=== PATIENT | male | born 1930 | race Caucasian/White ===

== ENCOUNTER 2019-03-26 18:46 | Inpatient (IN) | payer OTHER, BC ==
[~2019-03-26] VITALS: Ht 170.2 cm; Wt 34.0 kg
[2019-03-26 18:46] VITALS: BP 137/82
--- NOTE | 2019-03-26 19:11 | NUR ---
DR. WINTER EVALUATING AT BEDSIDE.
--- NOTE | 2019-03-26 19:15 | NUR ---
88 YO M BIBA FROM HOME C/O N/V/D X 4 DAYS WELL GENERALIZED WEAKNESS STARTING TODAY AFTER DINNER. PER , PT HAS BECOME INCREASINGLY CONFUSED OVER LAST 4 DAYS. PT ALSO C/O DRY, NAGGING COUGH STARTING TODAY. PT'S BASELINE IS AMBULATORY, A/O X 4. 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 PT IS FEBRILE AND TACHYCARDIC AT THIS TIME; SEPSIS PROTOCOL INITIATED. -- PT AWAKE, A/O TO NAME. REQUIRES HELP FROM WITH ANSWERING MOST QUESTIONS. CALM, COOPERATIVE. FOLLOWS COMMANDS WITHOUT DIFFICULTY; NEEDS REMINDING. -- SKIN PINK, DRY, HOT TO TOUCH. BREATHING EVEN, UNLABORED. -- PT DENIES PAIN, DISCOMFORT AT THIS TIME. PT REPORTS SOME CHEST DISCOMFORT WITH COUGH, DEEP BREATHING. PMH-- COPD, PARKINSON'S, IQUGMIUT, GLAUCOMA, C-DIFF X 4 YEARS AGO.
[2019-03-26] MEDS ORDERED: NACL 0.9% 1,000 ML IV ONE ×2 (19:16→21:40)
[2019-03-26] MEDS ORDERED: ACETAMINOPHEN EXTRA STRENGTH 500 MG TAB PO ONE (19:20)
[2019-03-26] MEDS ORDERED: NACL 0.9% 1,500 ML IV ONE (19:20)
--- NOTE | 2019-03-26 19:25 | NUR ---
EMT PERFORMING EKG AT BEDSIDE.
--- NOTE | 2019-03-26 19:30 | NUR ---
RN DRAWING LABS AT BEDSIDE.
--- NOTE | 2019-03-26 19:35 | NUR ---
XRAY AT BEDSIDE.
[2019-03-26] MEDS ORDERED: cefTRIAXone 1,000 MG VIAL ONE (19:48)
[2019-03-26 19:55] LABS: HEMATOCRIT 42.4 % (36-52); HEMOGLOBIN 14.2 g/dL (12.0-18.0); MEAN CORPUSCULAR HEMOGLOBIN 31 pg (27-31); MEAN CORPUSCULAR HGB CONC 34 g/dL (33-37); MEAN CORPUSCULAR VOLUME 90.9 fL (80-94); PLATELET COUNT (AUTO) 182 K/uL (140-450); RED BLOOD CELL COUNT(AUTO) 4.67 MIL/uL (4.20-6.10); RED CELL DISTRIBUTION WIDTH 14.4 % (11.6-13.7); WHITE BLOOD COUNT (AUTO) 8.4 K/uL (4.8-10.8)
--- NOTE | 2019-03-26 20:10 | NUR ---
PHLEB AT BEDSIDE DRAWING SECOND BLOOD CX.
[2019-03-26 20:11] LABS: PROTHROMBIN TIME 12.2 secs (10.8-13.4)
[2019-03-26 20:12] LABS: LYMPHOCYTES % (MANUAL) 4 % (20-46); MONOCYTES % (MANUAL) 1 % (5-12)
--- NOTE | 2019-03-26 20:22 | NUR ---
PT TAKEN TO CT VIA GURNEY ACCOMPANIED BY LABEL PASTER X 2.
--- NOTE | 2019-03-26 20:36 | NUR ---
PT RETURNED FROM CT VIA [facility].
[2019-03-26 20:38] LABS: CARBON DIOXIDE 23.4 mmol/L (21-32); CHLORIDE 102 mmol/L (98-107); CREATININE 1.3 mg/dL (0.7-1.3); GLUCOSE 234 mg/dL (74-106); POTASSIUM 3.4 mmol/L (3.5-5.1); SODIUM SERUM 139 mmol/L (136-145); UREA NITROGEN, BLOOD 22 mg/dL (7-18)
[2019-03-26 20:54] LABS: ALBUMIN 2.7 g/dL (3.4-5.0); ASPARTATE AMINOTRANSFERASE 42 U/L (15-37); LIPASE 20 U/L (73-393); TOTAL BILIRUBIN 0.7 mg/dL (0.0-1.0)
[2019-03-26 20:56] LABS: APPEARANCE,URINE CLOUDY (CLEAR); BILIRUBIN,URINE 1+ (NEGATIVE); BLOOD, URINE TRACE-I (NEGATIVE); COLOR,URINE ORANGE (YELLOW); LEUKOCYTE ESTERASE ,URINE NEGATIVE (NEGATIVE); NITRITE, URINE NEGATIVE (NEGATIVE); PH,URINE 5.5 (5.0-9.0); UGLUCOSE TRACE (NEGATIVE)
--- NOTE | 2019-03-26 21:21 | NUR ---
PT RESTING QUIETLY IN BED WITH VSS. NO COMPLAINTS AT THIS TIME. DAUGHTER SITTING AT BEDSIDE.
[2019-03-26 21:40] LABS: RBC,URINE 0-5 /HPF (0-5)
[2019-03-26 21:41] LABS: HYALINE CASTS, URINE 0-10 /LPF (None Seen); WBC,URINE 0-5 /HPF (0-5)
[2019-03-26] MEDS ORDERED: VITD1000 PO (21:53)
[2019-03-26] MEDS ORDERED: LATA7.5D OP (21:53)
[2019-03-26] MEDS ORDERED: ASPI-1718 PO (21:53)
[2019-03-26] MEDS ORDERED: COM200 PO (21:53)
[2019-03-26] MEDS ORDERED: [UNRECOGNIZED DRUG - CODE] PO (21:53)
[2019-03-26] MEDS ORDERED: CARB1TAB15 PO (21:53)
[2019-03-26] MEDS ORDERED: VITA1SGL PO (21:53)
[2019-03-26] MEDS ORDERED: ATOR10TA PO (21:53)
[2019-03-26] MEDS ORDERED: SILO8CAP PO (21:53)
[2019-03-26] MEDS ORDERED: metroNIDAZOLE 500 MG/NS PREMIX 100 ML IV ONE (22:05)
--- NOTE | 2019-03-26 22:16 | NUR ---
PT AWAKE, RESTING COMFORTABLY WITH AT BEDSIDE. FLUIDS RUNNING. PT IS AFEBRILE. VSS. NO COMPLAINTS AT THIS TIME.
[2019-03-26 23:00] VITALS: BP 110/60
--- NOTE | 2019-03-26 23:00 | NUR ---
RECIEVED PT. FROM ER /[facility] [place] .O2 SAT WNL , IV SITES INTACT AND PATENT.WITH C/O OF MILD ABDL. 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 WILL CONT. TO MONITOR.
--- NOTE | 2019-03-26 23:07 | NUR ---
Patient will be admitted to care of Dr. Metz. Admited to telemetry. Will go to room 122B. Belongings list completed. Report to HAYDER Calderón.
--- NOTE | 2019-03-27 | NUR ---
MADE ROUNDS , NO SIGNS OF ACUTE DISTRESS NOTED AT THIS TIME , CALL LIGHT WITHIN REACH - BED ALARM ON .
[2019-03-27] MEDS: NACL 0.9% 1,000 ML IV SCH ×2 (01:01→06:34)
[2019-03-27] MEDS ORDERED: HYDROcodone/APAP 5/325 MG 1 TAB TAB PO PRN (01:05)
[2019-03-27] MEDS ORDERED: DOCUSATE SODIUM 100 MG GELCAP PO PRN (01:05)
[2019-03-27] MEDS ORDERED: MORPHINE SULFATE 2 MG/ML SYR IVP PRN (01:05)
[2019-03-27] MEDS ORDERED: LORazepam 2 MG/ML VIAL IM/IVP PRN (01:05)
[2019-03-27] MEDS ORDERED: ZOLPIDEM 5 MG TAB PO PRN (01:05)
[2019-03-27] MEDS: ACETAMINOPHEN 325 MG TAB PO PRN (03:24)
--- NOTE | 2019-03-27 03:24 | NUR ---
RE CHECKED TEMP - 105.8F - TYLENOL P.O GIVEN ORDERED. WILL CONT. TO MONITOR .IVF INFUSING WELL .
[2019-03-27 04:00] VITALS: BP 105/60
[2019-03-27] MEDS ORDERED: DEXTROSE 50% 50 ML SYR IVP PRN (04:20)
--- NOTE | 2019-03-27 04:24 | NUR ---
RE CHECKED TEMP 100.2 - AWAKE AND ALERT. WILL CONT. TO MONITOR, CALL LIGHT WITHIN REACH.
[2019-03-27] MEDS: metroNIDAZOLE 500 MG/NS PREMIX 100 ML IV SCH ×3 (04:29→20:31)
[2019-03-27] MEDS ORDERED: WATER STERILE 10 ML MC ONE ×2 (05:56→06:00)
--- NOTE | 2019-03-27 06:00 | NUR ---
REFER TO JUNIOR . PT IS FEBRILE , HAD WATERY STOOLS 2X , MODERATE AMOUNT , CONSISTENT ST DEPRESSION ALTHOUGH SR LBP WNL . CR 92 - ON MODEL DRESSER. WILL CONT. TO MONITOR.JUNIOR SAID THEY WILL SEE THE PT.
[2019-03-27] MEDS: VANCOMYCIN 500 MG VIAL PO SCH ×4 (06:08→23:58)
[2019-03-27] MEDS: BLOOD GLUCOSE MONITORING 1 DEV DEV FS SCH ×4 (06:20→20:32)
--- NOTE | 2019-03-27 07:10 | NUR ---
RECEIVED BED SIDE REPORT FROM NIGHT NURSE, PATIENT IN STABLE CONDITION, NO DISTRESS NOTED.
--- NOTE | 2019-03-27 07:20 | NUR ---
ENDORSED TO AM SHIFT WITH STABLE CONDITION WITH LATEST TEMP 99.1 F.
[2019-03-27 07:30] LABS: HEMATOCRIT 39.7 % (36-52); HEMOGLOBIN 13.4 g/dL (12.0-18.0); MEAN CORPUSCULAR HEMOGLOBIN 30 pg (27-31); MEAN CORPUSCULAR HGB CONC 34 g/dL (33-37); MEAN CORPUSCULAR VOLUME 89.6 fL (80-94); PLATELET COUNT (AUTO) 160 K/uL (140-450); RED BLOOD CELL COUNT(AUTO) 4.43 MIL/uL (4.20-6.10); RED CELL DISTRIBUTION WIDTH 14.3 % (11.6-13.7); WHITE BLOOD COUNT (AUTO) 7.4 K/uL (4.8-10.8)
[2019-03-27 07:42] LABS: ANION GAP 16.7 (8-16); CARBON DIOXIDE 19.2 mmol/L (21-32); CHLORIDE 106 mmol/L (98-107); CREATININE 0.9 mg/dL (0.7-1.3); GLUCOSE 148 mg/dL (74-106); SODIUM SERUM 139 mmol/L (136-145); UREA NITROGEN, BLOOD 21 mg/dL (7-18)
--- NOTE | 2019-03-27 07:54 | NUR ---
PATIENT HAS BEEN SCREENED AND CATEGORIZED HIGH NUTRITION RISK. PATIENT WILL BE SEEN WITHIN 1-2 DAYS OF ADMISSION. 03/27/19-03/28/[address]
[2019-03-27 07:58] LABS: CHOL/HDL RATIO 2.3 (1-4.5); MAGNESIUM 1.5 mg/dL (1.8-2.4); PHOSPHORUS 2.4 mg/dL (2.5-4.9); THYROID STIMULATING HORMONE 2.59 uIU/mL (0.34-3.74)
[2019-03-27 08:00] VITALS: BP 116/78
[2019-03-27 08:04] LABS: POTASSIUM 2.9 mmol/L (3.5-5.1)
[2019-03-27 08:43] LABS: BASOPHILS % (MANUAL) 0 % (0-2); EOSINOPHILS % (MANUAL) 0 % (0-4); LYMPHOCYTES % (MANUAL) 2 % (20-46); MONOCYTES % (MANUAL) 4 % (5-12)
[2019-03-27] MEDS ORDERED: CARBIDOPA PO SCH (09:00)
[2019-03-27] MEDS ORDERED: POTASSIUM CHLORIDE 40 MEQ, LIDOCAINE MPF 1% 25 MG in NACL 0.9% 250 ML IV ONE (09:00)
[2019-03-27] MEDS ORDERED: LEVODOPA PO SCH (09:00)
[2019-03-27] MEDS ORDERED: ENTACAPONE 200 MG TAB PO SCH (09:00)
[2019-03-27] MEDS: VITAMIN B COMPLEX W/C 1 TAB PO SCH (09:09)
[2019-03-27] MEDS: CHOLECALCIFEROL 1,000 IU TAB PO SCH (09:10)
[2019-03-27] MEDS: ASPIRIN 81 MG TAB.CHEW PO SCH (09:10)
[2019-03-27] MEDS: LACTOBACILLUS RHAMNOSUS GG 1 EACH CAP PO SCH (09:10)
--- NOTE | 2019-03-27 09:14 | NUR ---
SCHEDULED MEDS GIVEN TO PATIENT, PATIENT CALM WATCHING TV IN BED, NO DISTRESS NOTED. WILL CONTINUE TO MONITOR.
--- NOTE | 2019-03-27 10:58 | NUR ---
PATIENT IN BED CALMLY WITH FAMILY AT THE BED SIDE. COFFEE GIVEN TO FAMILY. NO DISTRESS NOTED. WILL CONTINUE TO MONITOR
[2019-03-27] MEDS ORDERED: MAGNESIUM CHLORIDE 64 MG TABEC PO SCH (11:25)
[2019-03-27] MEDS ORDERED: POLYVINYL ALCOHOL 1.4% OP 15 ML SOL OP PRN (11:30)
[2019-03-27 12:00] VITALS: BP 123/79
--- NOTE | 2019-03-27 12:14 | NUR ---
DR. LAMB AT BEDSIDE REVIEWING PLAN OF CARE WITH PATIENT/FATHER AT BEDSIDE. WILL CONTINUE TO MONITOR.
[2019-03-27] MEDS: CARBIDOPA/LEVODOPA 10/100 MG 1 TAB PO SCH ×2 (12:38→17:21)
[2019-03-27] MEDS: INSULIN LISPRO SLIDING SCALE 100 UNITS/ML VIAL SUBQ PRN ×3 (12:38→20:33)
--- NOTE | 2019-03-27 13:00 | NUR ---
SCHEDULED MEDS GIVEN AT THE BED SIDE. FAMILY AT BEDSIDE. NO DISTRESS NOTED AT THIS TIME. WILL CONTINUE TO MONITOR.
--- NOTE | 2019-03-27 13:15 | NUR ---
03/27/19 RD INITIAL ASSESSMENT COMPLETED PLEASE REFER TO NUTRITION ASSESSMENT UNDER CARE ACTIVITY FOR ESTIMATED NUTRITIONAL NEEDS. RD RECOMMENDATIONS: 1. WHEN MEDICALLY APPROPRIATE, CONSIDER CONSULTING ELECTROMECHANICAL EQUIPMENT TESTER FOR SWALLOW EVALUATION D/T PT WITH CHEWING AND SWALLOWING DIFFICULTY. 2. RD WILL F/U 2-3 DAYS; MODERATE RISK. ELISABETH CHAMBERLAIN, RD
[2019-03-27] MEDS: ENTACAPONE 200 MG TAB PO SCH ×2 (14:15→17:21)
--- NOTE | 2019-03-27 15:09 | NUR ---
WITH ASSISTANCE, ATTEMPT TO GET PATIENT ON COMMODE, PER 'S REQUEST. PATIENT UNABLE TO STAND AND WAS ASSISTED BACK TO BED. SAFETY MEASURES IN PLACE. PLAN TO GIVE ZOFRAN TO RELIEVE NAUSEA REQUESTED PER PATIENT. WILL CONTINUE TO MONITOR THEREAFTER.
[2019-03-27 16:00] VITALS: BP 132/95
[2019-03-27] MEDS: ONDANSETRON 4 MG/2 ML VIAL IM/IVP PRN (16:31)
--- NOTE | 2019-03-27 17:18 | NUR ---
SCHEDULED MEDS GIVEN TO PATIENT, NO DISTRESS NOTED. PATIENT WILL REMAIN UPRIGHT AFTER MEDS ADMIN. FAMILY AT THE BED SIDE.
--- NOTE | 2019-03-27 17:39 | NUR ---
PATIENT IN STABLE CONDITION AFTER STOCK MOVER, WILL LOWER HEAD OF BED TOLERATED. NO DISTRESS NOTED. FAMILY AT BEDSIDE. WILL CONTINUE TO MONITOR.
--- NOTE | 2019-03-27 18:15 | NUR ---
BLADDER SCAN COMPLETED AT BEDSIDE. PATIENT IN STABLE CONDITION. WILL CONTINUE TO MONITOR.
--- NOTE | 2019-03-27 19:17 | NUR ---
GAVE END OF SHIFT REPORT TO ADMINISTRATION CLERK NURSE, PATIENT IN STABLE CONDITION
--- NOTE | 2019-03-27 19:20 | NUR ---
RECEIVED REPORT FROM AM RN . WILL CONTINUE WITH CARE . FAMILY MEMBERS IN HERE AND NO COMPLAINTS DONE. CALL LIGHT WITH IN REACH. BED ALARM ON. IVF SITE INTACT AND PATENT. TELEMETRY MONITORING. DX. COLITIS/DIARRHEA. ISOLATION PRECAUTION WILL BE OBSERVED PER PROTOCOL. R/O C-DIFF.
[2019-03-27 20:19] VITALS: BP 109/79
[2019-03-27] MEDS: ATORVASTATIN 20 MG TAB PO SCH (20:32)
--- NOTE | 2019-03-27 22:00 | NUR ---
PT. FAMILY MEMBERS STILL HERE. NO COMPLAINTS DONE. PT. ATTENDED TO BY CNAS. KEPT CLEAN AND DRY. TURNED TO SIDES WITH PILLOW SUPPORT TO PRESSURE AREAS.
--- NOTE | 2019-03-27 23:53 | NUR ---
PT. SLEEPING AT THIS TIME. NO RESTLESSNESS. WILL BE TURNED Q 2H.
[2019-03-28] VITALS (8 sets, daily range): BP systolic 92–118; BP diastolic 62–82
--- NOTE | 2019-03-28 02:30 | NUR ---
SLEEPING WELL. NO RESTLESSNESS. CALL LIGHT AT BEDSIDE WITH IN REACH. TELEMETRY MONITORING.
--- NOTE | 2019-03-28 04:06 | NUR ---
PT. AWAKE AT THIS TIME. CNAS TO CLEAN PT. RT WITH BM. TURNED TO SIDES Q 2H . PILLLOW SUPPORT TO PRESSURE AREAS. TELEMETRY MONITORING. NO RESTLESSNESS NOTED. NO SOB.
[2019-03-28] MEDS: metroNIDAZOLE 500 MG/NS PREMIX 100 ML IV SCH ×3 (04:23→21:29)
[2019-03-28] MEDS: VANCOMYCIN 500 MG VIAL PO SCH ×3 (05:13→18:35)
[2019-03-28] MEDS: BLOOD GLUCOSE MONITORING 1 DEV DEV FS SCH ×4 (05:13→21:30)
[2019-03-28] MEDS: INSULIN LISPRO SLIDING SCALE 100 UNITS/ML VIAL SUBQ PRN ×4 (05:14→21:46)
--- NOTE | 2019-03-28 05:53 | NUR ---
PT. TURNED Q 2H. PILLOW SUPPORT IN PLACE TO PRESSURE AREAS. NEEDS ANTICIPATED AND MET. TOTAL CARE AT THIS TIME RT WEAKNESS. PER FAMILY MEMBER/DAUGHTER EARLIER THAT PT. USUALLY DON'T GET OUT OF BED.
--- NOTE | 2019-03-28 07:26 | NUR ---
ENDORSED TO AM RN FOR CONTINUITY OF CARE AWAKE AND ALERT. NO COMPLAINTS DONE. CALL LIGHT WITH IN REACH.
--- NOTE | 2019-03-28 07:28 | NUR ---
RECEIVED REPORT FROM NIGHT NURSE. PATIENT IS IN BED, ASLEEP, ABLE WAKE. RESPIRATION EVEN AND UNLABORED. IV INTACT AND PATENT TO RIGHT AC AND LEFT AC. IVF NS INFUSING @ 60ML/HR. TOLERATING WELL. NO S/S OF DISTRESS NOTED. BED IN LOW POSITION, SAFETY MEASURES IN PLACE. CALL LIGHT WITHIN REACH.
[2019-03-28] MEDS: ENTACAPONE 200 MG TAB PO SCH ×3 (08:45→17:52)
[2019-03-28] MEDS: MAGNESIUM CHLORIDE 64 MG TABEC PO SCH (08:46)
[2019-03-28] MEDS: CARBIDOPA/LEVODOPA 10/100 MG 1 TAB PO SCH ×3 (08:46→17:52)
[2019-03-28] MEDS: CHOLECALCIFEROL 1,000 IU TAB PO SCH (08:46)
[2019-03-28] MEDS: VITAMIN B COMPLEX W/C 1 TAB PO SCH (08:47)
[2019-03-28] MEDS: ASPIRIN 81 MG TAB.CHEW PO SCH (08:47)
[2019-03-28] MEDS: LACTOBACILLUS RHAMNOSUS GG 1 EACH CAP PO SCH (08:47)
[2019-03-28 08:56] LABS: HEMATOCRIT 53.2 % (36-52); HEMOGLOBIN 17.5 g/dL (12.0-18.0); MEAN CORPUSCULAR HEMOGLOBIN 30 pg (27-31); MEAN CORPUSCULAR HGB CONC 33 g/dL (33-37); MEAN CORPUSCULAR VOLUME 90.8 fL (80-94); PLATELET COUNT (AUTO) 167 K/uL (140-450); RED BLOOD CELL COUNT(AUTO) 5.86 MIL/uL (4.20-6.10); RED CELL DISTRIBUTION WIDTH 14.7 % (11.6-13.7); WHITE BLOOD COUNT (AUTO) 20.9 K/uL (4.8-10.8)
[2019-03-28] MEDS ORDERED: COMMUNICATION ORDER MC SCH (09:00)
--- NOTE | 2019-03-28 09:00 | NUR ---
AM MEDICATIONS GIVEN. TOLERATED WELL. DENIES ANY PAIN OR DISCOMFORT. IV INTACT AND PATENT TO RIGHT AC AND LEFT AC. IVF NS INFUSING AT 60ML/HR. AT BEDSIDE.
[2019-03-28 09:49] LABS: CREATININE 1.5 mg/dL (0.7-1.3); GLUCOSE 168 mg/dL (74-106); UREA NITROGEN, BLOOD 32 mg/dL (7-18)
[2019-03-28 09:52] LABS: MAGNESIUM 1.8 mg/dL (1.8-2.4)
--- NOTE | 2019-03-28 10:30 | NUR ---
PT CHANGED AND REPOSITIONED. NO S/S OF DISTRESS NOTED.
[2019-03-28] MEDS: NACL 0.9% 1,000 ML IV SCH ×2 (10:37→20:45)
[2019-03-28 10:45] LABS: CHLORIDE 106 mmol/L (98-107); SODIUM SERUM 138 mmol/L (136-145)
[2019-03-28 10:57] LABS: EOSINOPHILS % (MANUAL) 1 % (0-4); LYMPHOCYTES % (MANUAL) 10 % (20-46); MONOCYTES % (MANUAL) 7 % (5-12)
[2019-03-28] MEDS ORDERED: NACL 0.9% 1,000 ML IV ONE (11:20)
[2019-03-28] MEDS ORDERED: guaiFENesin DM 200/20 MG-10 ML 10 ML UDC PO PRN (12:05)
[2019-03-28] MEDS: ONDANSETRON 4 MG/2 ML VIAL IM/IVP PRN (12:12)
--- NOTE | 2019-03-28 12:15 | NUR ---
PATIENT C/O NAUSEA, ZOFRAN IVP GIVEN ORDERED PRN. BS 211, INSULIN COVERAGE GIVEN WITH 4 UNITS OF HUMALOG. FAMILY AT BEDSIDE. NEEDS MET AT THIS TIME.
[2019-03-28] MEDS ORDERED: FLUT1POW3 IH (12:47)
--- NOTE | 2019-03-28 13:40 | NUR ---
PATIENT IS LYING IN BED, AWAKE, ALERT AND VERBALLY RESPONSIVE. DENIES PAIN OR DISCOMFORT. IVF NS BOLUS INFUSING AT THIS TIME. TOLERATING WELL NO DISTRESS NOTED.
[2019-03-28] MEDS: ALBUTEROL SULFATE/IPRATROPIU 3 ML SOL IH PRN ×2 (15:52→20:47)
--- NOTE | 2019-03-28 17:30 | NUR ---
IV TO RIGHT AC AND LEFT AC NON PATENT, BOTH LEAKING. WILL REINSERT IV.
[2019-03-28] MEDS: ALBUTEROL SULFATE/IPRATROPIU 3 ML SOL IH SCH (19:00)
--- NOTE | 2019-03-28 19:00 | NUR ---
IV INSERTED TO RIGHT WRIST 22G CANNULA. TOLERATED WELL. WILL GIVE REPORT TO NIGHT NURSE. PATIENT IN STABLE CONDITION.
--- NOTE | 2019-03-28 19:15 | NUR ---
REPORT GIVEN TO NIGHT NURSE. PATIENT IN STABLE CONDITION.
--- NOTE | 2019-03-28 19:25 | NUR ---
RECEIVED FROM AM RN IN BED AWAKE AND WATCHING HIS FAMILY EATING DINNER. ALERT. [place] AND WITH HEARING AIDS IN PLACE. CALL LIGHT WITH IN REACH. ISOLATION PRECAUTION OBSERVED RT + C DIFF RESULT OF STOOL OF THIS A.M. CARE PLANS FOR THE NIGHT DISCUSSED WITH FAMILY MEMBERS. NO COMPLAINTS DONE AT THIS TIME. PT. WILL TURNED Q 2H AND NEEDS WILL BE ANTICIPATED.
--- NOTE | 2019-03-28 19:46 | NUR ---
PATIENT SLEEPING. BREATHING TREATMENT NOT ADMINISTERED; MEDICATION ORDERED WHILE AWAKE. FAMILY MADE AWARE OF MEDICATION FREQUENCY AND IN AGREEANCE. NO SOB NOTED. FAMILY/ AT BEDSIDE. FAMILY/ DOES NOT WANT PATIENT AWAKENED FOR TREATMENT OR ASSESSMENT. NO RESPIRATORY DISTRESS NOTED. WILL CONTINUE TO MONITOR. RN AWARE.
[2019-03-28] MEDS ORDERED: LATANOPROST 0.005% OP 2.5 ML BTL OP SCH (21:00)
--- NOTE | 2019-03-28 21:05 | NUR ---
PATIENT AWAKE. FAMILY AND AT BEDSIDE/REQUESTING BREATHING TREATMENT AT THIS TIME. PRN ADMINISTERED. TOLERATED WELL WITHOUT ADVERSE SIDE EFFECTS. NO ACUTE RESPIRATORY DISTRESS NOTED. WILL CONTINUE TO MONITOR.
[2019-03-28] MEDS: ACETAMINOPHEN 325 MG TAB PO PRN (21:29)
[2019-03-28] MEDS: ATORVASTATIN 20 MG TAB PO SCH (21:29)
--- NOTE | 2019-03-28 22:05 | NUR ---
P.O. MEDICATION SWALLOWED WELL AND NO NOTED ASPIRATION S/S. BLOOD SUGAR PER FINGERSTICK AT THIS TIME 208. COVERED WITH 4 UNITS OF HUMALOG PER PROTOCOL. FAMILY MEMBERS STILL HERE AND ATTENDING TO PT. NO COMPLAINTS DONE. PT. WILL BE TURNED Q 2H.
--- NOTE | 2019-03-28 22:29 | NUR ---
FAMILY MEMBERS LEFT FOR HOME. NO COMPLAINTS DONE. VERY HAPPY WITH PT'S CARE. PT. WILL BE TURNED Q 2H. TOTAL CARE. CALL LIGHT WITH IN REACH.
--- NOTE | 2019-03-28 23:25 | NUR ---
CALLED MD RESIDENT PETERSEN AND INFORMED HIM ABOUT PT. BEING CLAMMY IN SKIN AND THAT HIS HEART RATE IS 130-136. EKG ORDERED AND LAB WORKS ORDERED TOO. PAGED RESPIRATORY THERAPIST TOO.
[2019-03-29] VITALS (32 sets, daily range): BP systolic 53–149; BP diastolic 17–112
--- NOTE | 2019-03-29 00:05 | NUR ---
EKG DONE AND TRACK MANAGER TOOK BLOOD SPECIMEN. RESIDENT MD PETERSEN IN HERE AND WATCHING OVER PT. RESPIRATORY THERAPIST IN HERE AND GIVING BREATHING TREATMENT. KEPT PT. COMFORTABLE AND HOB UP 30 DEGREES FOR MAXIMUM LUNG EXPANSION.
[2019-03-29] MEDS ORDERED: NACL 0.9% 1,000 ML IV ONE ×2 (00:15→01:50)
[2019-03-29] MEDS: VANCOMYCIN 500 MG VIAL PO SCH ×2 (00:15→06:15)
--- NOTE | 2019-03-29 00:23 | NUR ---
PT. WILL BE PLACED ON BIPAP PER RESPIRATORY THERAPIST SUGGESTION TO RESIDENT MD. BLOOD SUGAR CHECKED IS 166 PER FINGERSTICK. KEPT CLEAN AND DRY.
--- NOTE | 2019-03-29 00:26 | NUR ---
PT. TROPONIN 0.186 AND LACTIC ACID 6.8 REPORTED TO RESIDENT MD PETERSEN. AWARE.
--- NOTE | 2019-03-29 00:26 | NUR ---
INFORMED RESIDENT MD OF TROPONIN 0.186 AND LACTIC ACID 6.8 RESULT . AWARE AND WITH NEW ORDER TO GIVE BOLUS NS 1 LITER. PT. NOW ON BIPAP .
[2019-03-29 00:30] LABS: ANION GAP 20.6 (8-16); CHLORIDE 104 mmol/L (98-107); CREATININE 2.7 mg/dL (0.7-1.3); GLUCOSE 216 mg/dL (74-106); POTASSIUM 3.6 mmol/L (3.5-5.1); SODIUM SERUM 137 mmol/L (136-145); UREA NITROGEN, BLOOD 44 mg/dL (7-18)
--- NOTE | 2019-03-29 00:33 | NUR ---
PAGED X 2 AND LEFT MESSAGE. SECOND TRY SHELLIE PICKED UP AND INFORMED HER OF PT. CHANGES AND THE PLANS THAT RESIDENT MD MIGHT TRANSFER PT. TO ICU. PER SHE WILL COME OVER. CHARGE NURSE AWARE OF PT.'S STATUS. BOLUS ON GOING AND IVF SITE RE-CHECKED FOR PATENCY . WITH GOOD BLOOD RETURN INSPECTED BY CHARGE NURSE.
--- NOTE | 2019-03-29 01:00 | NUR ---
PAGED BY RN TO ASSESS PATIENT. 2330 EKG DONE. RESULTS GIVEN TO RN AND MD. 2335 PATIENT PRESENTS WITH INCREASED WORK OF BREATHING. PRN BREATHING TREATMENT ADMINISTERED. PT CONTINUES TO BE TACHYPNEIC WITH DISTRESS POST TX. PLACED ON BIPAP PER ORDER. PATIENT NON-COMPLIANT AND DIFFICULT TO SUPERVISOR TILE AND MOTTLE ON USE OF BIPAP. 0115 ABG DRAWN WITHOUT INCIDENT. RESULTS GIVEN TO RESIDENT PHYSICIAN. 0145 PATIENT TRANSPORTED TO ICU ON 5L NC. 0230 PATIENT INTUBATED.
[2019-03-29 01:17] LABS: HEMOGLOBIN 18.6 g/dL (12.0-18.0)
--- NOTE | 2019-03-29 01:18 | NUR ---
RESIDENT WITH ORDER TO TRANSFER PT. TO ICU. CHARGE NURSE TALKING WITH BILINGUAL INSIDE SALES REPRESENTATIVE FOR BED.
--- NOTE | 2019-03-29 01:21 | NUR ---
ABG DRAWN WITHOUT INCIDENT. RESULTS GIVEN TO RESIDENT PHYSICIAN.
[2019-03-29 01:26] LABS: HEMATOCRIT 57.9 % (36-52); MEAN CORPUSCULAR HEMOGLOBIN 30 pg (27-31); MEAN CORPUSCULAR HGB CONC 32 g/dL (33-37); MEAN CORPUSCULAR VOLUME 92.8 fL (80-94); PLATELET COUNT (AUTO) 114 K/uL (140-450); RED BLOOD CELL COUNT(AUTO) 6.24 MIL/uL (4.20-6.10); RED CELL DISTRIBUTION WIDTH 15.6 % (11.6-13.7)
--- NOTE | 2019-03-29 01:45 | NUR ---
PT. WHEELED TO ICU AWAKE AND ALERT WITH RESPIRATORY THERAPIST AND NURSES. FAMILY MEMBERS IN HERE TO ACCOMPANY PT. REPORT GIVEN TO SERGO IN ICU. RESPIRATORY THERAPIST ACCOMPANIED PT. TO ICU .
--- NOTE | 2019-03-29 01:50 | NUR ---
TRANS-IN FROM TELE THIS 88 YEAR OLD MAN DUE TO ABNORMAL ABG RESULT, IN METABOLIC ACIDOSIS REPORTED; WITH COLD CLAMMY SKIN AND WITH SOMEWHAT SHORT OF BREATH. NOTIFIED DR. PETERSEN IMMEDIATELY AND ORDERED TO INTUBATE THE PATIENT.
--- NOTE | 2019-03-29 01:55 | NUR ---
INFORMED SERGO OF ICU THAT WBC REPORTED JUST NOW BY [employer] DRIER IS 47.8 WHILE I AM IN ICU .
[2019-03-29 01:56] LABS: WHITE BLOOD COUNT (AUTO) 47.8 K/uL (4.8-10.8)
[2019-03-29 01:58] LABS: EOSINOPHILS % (MANUAL) 1 % (0-4); LYMPHOCYTES % (MANUAL) 5 % (20-46); MONOCYTES % (MANUAL) 6 % (5-12)
--- NOTE | 2019-03-29 02:00 | NUR ---
PATIENT IS NON VERBAL AND APHASIC; IVF IN PROGRESS IN NORMAL SALINE BOLUS, TOTAL 2 LITERS GIVEN ORDERED VIA G 22 IV CANNULA ON RIGHT WRIST; PATENT AND INTACT.
--- NOTE | 2019-03-29 02:00 | NUR ---
DR. TANYA VILLATORO MD CAME IN AND INTUBATED THE PATIENT; Addendum: 03/29/19 at 0800 by Lizett Woods RN ETT CONNECTED TO VENTILATOR/RT. AND WAS LATER CONFIRMED BY CHEST X-RAY.
[2019-03-29] MEDS ORDERED: NOREPINEPHRINE 8 MG in DEXTROSE 5% 250 ML IV PRN (02:10)
[2019-03-29] MEDS ORDERED: SODIUM BICARBONATE 8.4% PFS 50 MEQ/50 ML SYR IVP SCH (02:15)
--- NOTE | 2019-03-29 02:18 | NUR ---
ALL PERSONAL BELONGINGS OF PT. WITH FAMILY MEMBERS . NO BELONGINGS LEFT BEHIND IN TELEMETRY ROOM.
[2019-03-29] MEDS ORDERED: MIDAZOLAM MDV 50 MG in NACL 0.9% 40 ML IV PRN (02:20)
--- NOTE | 2019-03-29 02:30 | NUR ---
PATIENT INTUBATED WITH 7.0 ETT AT 24 CM AT LIP LINE BY ER PHYSICIAN. SUCCESSFUL INTUBATION WITHOUT ANY INCIDENT. PLACED ON MECHANICAL VENTILATOR. WILL FOLLOW UP WITH ANY NEW ORDERS.
[2019-03-29] MEDS ORDERED: PROPOFOL 1000 MG/100 ML PREMIX 100 ML IV PRN (02:45)
[2019-03-29] MEDS ORDERED: PROPOFOL 1000 MG/100 ML PREMIX 100 ML IV ONE (02:48)
--- NOTE | 2019-03-29 02:55 | NUR ---
PROPOFOL DRIP STARTED AT 5 MCG/KG/MIN VIA G 22 IV CANNULA ON RIGHT WRIST USING DRY WEIGHT 75 KG.
--- NOTE | 2019-03-29 03:30 | NUR ---
CENTRAL LINE INSERTED BY DR. PETERSEN ON RIGHT INTERNAL JUGULAR UNDER GUIDED ULTRASOUND AND WAS SUCCESSFULLY INSERTED CONFIRMED BY CHEST X-RAY LATER.
--- NOTE | 2019-03-29 04:13 | NUR ---
BLOOD PRESSURE 70/40. UNABLE TO OBTAIN ABG AT THIS TIME DESPITE MULTIPLE ATTEMPTS BY 2 RTs. WILL OBTAIN AT LATER TIME WHEN BLOOD PRESSURE INCREASES.
--- NOTE | 2019-03-29 04:30 | NUR ---
PATIENT BECAME SO HYPOTENSIVE BP 76/60; LEVOPHED DRIP AT 5 MCG/MIN THEN TITRATED UP PER PROTOCOL.
[2019-03-29] MEDS ORDERED: NOREPINEPHRINE 4 MG/4 ML VIAL IV ONE (04:36)
[2019-03-29 04:55] LABS: HEMATOCRIT 55.2 % (36-52); HEMOGLOBIN 17.7 g/dL (12.0-18.0); MEAN CORPUSCULAR HEMOGLOBIN 30 pg (27-31); MEAN CORPUSCULAR HGB CONC 32 g/dL (33-37); MEAN CORPUSCULAR VOLUME 92.2 fL (80-94); PLATELET COUNT (AUTO) 104 K/uL (140-450); RED BLOOD CELL COUNT(AUTO) 5.98 MIL/uL (4.20-6.10); RED CELL DISTRIBUTION WIDTH 15.5 % (11.6-13.7)
[2019-03-29] MEDS ORDERED: PIPERACILLIN/TAZOBACTAM 2.25 GM VIAL IV ONE (05:34)
[2019-03-29 05:39] LABS: ANION GAP 21.8 (8-16); CARBON DIOXIDE 15.8 mmol/L (21-32); CHLORIDE 107 mmol/L (98-107); CREATININE 2.8 mg/dL (0.7-1.3); GLUCOSE 168 mg/dL (74-106); POTASSIUM 3.6 mmol/L (3.5-5.1); SODIUM SERUM 141 mmol/L (136-145); UREA NITROGEN, BLOOD 47 mg/dL (7-18)
[2019-03-29 05:44] LABS: MAGNESIUM 1.9 mg/dL (1.8-2.4); PHOSPHORUS 4.4 mg/dL (2.5-4.9)
[2019-03-29] MEDS ORDERED: VANCOMYCIN 500 MG VIAL ONE (05:51)
[2019-03-29] MEDS ORDERED: WATER STERILE 20 ML MC ONE (05:57)
[2019-03-29] MEDS ORDERED: PIPERACILLIN/TAZOBACTAM 2.25 GM in DEXTROSE 5% 50 ML IV SCH (06:00)
[2019-03-29] MEDS: metroNIDAZOLE 500 MG/NS PREMIX 100 ML IV SCH (06:10)
[2019-03-29] MEDS ORDERED: DILTIAZEM 25 MG/5 ML VIAL IVP SCH (06:15)
[2019-03-29 06:19] LABS: EOSINOPHILS % (MANUAL) 1 % (0-4); LYMPHOCYTES % (MANUAL) 4 % (20-46); METAMYELOCYTES % 6 % (0-0); MONOCYTES % (MANUAL) 10 % (5-12); MYELOCYTES % 4 % (0-0)
[2019-03-29 06:20] LABS: CORRECTED WHITE BLOOD COUNT 49.1 K/uL (4.5-11.0)
--- NOTE | 2019-03-29 06:22 | NUR ---
PAGED DR. WALKER AND DR. MILLIGAN FOR ABG RESULTS. NO CALL BACK YET. ENDORSED TO DAY SHIFT RT. CALLED DR. PETERSEN TO REPORT ABG RESULTS.
--- NOTE | 2019-03-29 06:35 | NUR ---
DR. MILLIGAN CREW FOREMAN ON DUTY SEEN AND EXAMINED PATIENT WITH NEW ORDERS . HE ALSO UPDATED ON PATIENT'SMEDICAL CONDITION TO FAMILY AT BEDSIDE ( AND DAUGHTER).
--- NOTE | 2019-03-29 06:40 | NUR ---
rec'd pt on carescape vent settings ac 20 vt 450 peep 5 fio2 40% alarms on and audible and ambu bag at side of vent and vent is plugged into red outlet, no hhn given due to high heart rate of 140 at bedside, b\s coarse bilaterally, pt is orally intubated with 7.5 et tube secured with anchor fast at 24 cm
[2019-03-29] MEDS: ALBUTEROL SULFATE/IPRATROPIU 3 ML SOL IH SCH (06:45)
[2019-03-29] MEDS ORDERED: PHENYLEPHRINE 10 MG in NACL 0.9% 250 ML IV PRN (06:55)
[2019-03-29] MEDS ORDERED: COMMUNICATION ORDER MC PRN (07:00)
--- NOTE | 2019-03-29 07:07 | NUR ---
RECEIVED BEDSIDE REPORT FROM RETAIL SALES DIRECTOR RN, SERGO, FOR CONTINUITY OF CARE. PATIENT IS OBTUNDED, UNABLE TO FOLLOW COMMANDS OR MAKE NEEDS KNOWN. PATIENT'S SKIN IS COOL, DRY, AFEBRILE, INTACT. DRY WEIGHT OF 75 KG. HE HAS CENTRAL LINE TO RIJ, PERIPHERAL IV SITE TO R. WRIST, 22 GAUGE. PATIENT HAS ETT TO VENT, SVT ON MONITOR, FLACC 0. PATIENT HAS NG TO LEFT NARES, ESPINAL CATHETER IN PLACE. HOB IS 30 DEGREES, SIDE RAILS UP 3X, BED LOCKED IN LOW POSITION. PATIENT'S AND DAUGHTER ARE AT BEDSIDE, UPDATED ON PATIENT'S CONDITION. WILL CONTINUE TO MONITOR PATIENT.
--- NOTE | 2019-03-29 07:17 | NUR ---
CALLED TO ICU 8 DUE TO PT DESATURATING TO 80% INCREASED FIO2 TO 100% AND CHANGE TO EAR CLIP AT BEDSIDE
[2019-03-29] MEDS ORDERED: SODIUM BICARBONATE 8.4% 100 MEQ in DEXTROSE 5% 1,000 ML IV SCH (07:30)
[2019-03-29] MEDS: BLOOD GLUCOSE MONITORING 1 DEV DEV FS SCH (07:33)
--- NOTE | 2019-03-29 08:12 | NUR ---
PATIENT'S HR IS 150'S, DR. NICHOLS IS AWARE, STATES THAT HE WILL PUT IN ORDERS.
[2019-03-29] MEDS ORDERED: ADENOSINE 6 MG/2 ML VIAL IVP SCH ×2 (08:20→08:55)
--- NOTE | 2019-03-29 08:38 | NUR ---
DR. VALENTIN AND RESIDENT PHYSICIANS AT BEDSIDE, UPDATED ON PATIENT'S CONDITION. DR. NICHOLS SPOKE WITH SHAKEEL, PHARMACIST, REGARDING ORDERS. WILL FOLLOW UP WITH NEW ORDERS.
[2019-03-29] MEDS: ENTACAPONE 200 MG TAB PO SCH (08:45)
[2019-03-29] MEDS: ASPIRIN 81 MG TAB.CHEW PO SCH (08:46)
[2019-03-29] MEDS: LACTOBACILLUS RHAMNOSUS GG 1 EACH CAP PO SCH (08:46)
[2019-03-29] MEDS: MAGNESIUM CHLORIDE 64 MG TABEC PO SCH (08:46)
[2019-03-29] MEDS ORDERED: NACL 0.9% 1,000 ML IV SCH (08:50)
[2019-03-29] MEDS: CHOLECALCIFEROL 1,000 IU TAB PO SCH (09:00)
[2019-03-29] MEDS ORDERED: BREO ELLIPTA INH SCH (09:00)
[2019-03-29] MEDS ORDERED: HYDRAGUARD CREAM TP SCH (09:00)
[2019-03-29] MEDS: VITAMIN B COMPLEX W/C 1 TAB PO SCH (09:00)
[2019-03-29] MEDS: CARBIDOPA/LEVODOPA 10/100 MG 1 TAB PO SCH (09:00)
--- NOTE | 2019-03-29 09:22 | NUR ---
DR. NICHOLS AT BEDSIDE SPEAKING WITH AND SON ABOUT PLAN FOR PATIENT, WILL FOLLOW UP WITH ANY ORDERS.
--- NOTE | 2019-03-29 09:27 | NUR ---
DR. NICHOLS SPOKE WITH PATIENT'S DAUGHTER REGARDING ADENOSINE, PATIENT'S DAUGHTER REFUSES GIVING ANOTHER DOSE OF ADENOSINE.
--- NOTE | 2019-03-29 09:44 | NUR ---
DR. LAO IS HERE TO SEE AND EXAMINE PATIENT, UPDATED ON PATIENT'S CONDITION. WILL FOLLOW UP ON ANY ORDERS.
--- NOTE | 2019-03-29 10:18 | NUR ---
DR. MEDINA IS HERE TO SEE AND EXAMINE PATIENT, UPDATED ON PATIENT'S CONDITION. WILL FOLLOW UP ON ANY ORDERS
--- NOTE | 2019-03-29 10:29 | NUR ---
DR. NICHOLS IS HERE TO SPEAK WITH DR. MEDINA AND PATIENT'S . PATIENT'S STATES THAT SHE DOES NOT WANT ANY SURGERIES ON THE PATIENT AT THIS TIME AND WANTS TO CHANGE PATIENT'S CODE STATUS TO MODIFIED CODE, ACLS DRUGS, VASOPRESSORS AND INTUBATION ONLY.
--- NOTE | 2019-03-29 10:55 | NUR ---
PATIENT'S HR DECREASING TO 51, DR. NICHOLS AWARE AND AT BEDSIDE, ORDER TO GIVE ATROPINE, ATROPINE GIVEN, PATIENT'S HR CONTINUE TO DECREASE TO 31. PATIENT'S AND DAUGHTER AT BEDSIDE. CODE BLUE CALLED, PATIENT IS ON MODIFIED CODE, ACLS DRUGS, VASOPRESSORS AND INTUBATION ONLY.
--- NOTE | 2019-03-29 10:59 | NUR ---
code blue called to icu 8 pt mode code at bedside and er dr. souza pronounced pt at 1101 and family at bedside
--- NOTE | 2019-03-29 11:03 | NUR ---
DR. GALAN AT BEDSIDE WITH RESIDENT PHYSICIAN, PRONOUNCED PATIENT'S AT 1101. FAMILY AT BEDSIDE.
--- NOTE | 2019-03-29 11:34 | NUR ---
SPOKE WITH CHRISTIANO FROM [facility], UPDATED ON PATIENT'S CONDITION, STATES THAT PATIENT IS NOT A CANDIDATE FOR DONATION AT THIS TIME. PATIENT'S REFERENCE # IS [id number].
--- NOTE | 2019-03-29 11:59 | NUR ---
SPOKE WITH PATIENT'S , STATES THAT THEY HAVE ALREADY MADE ARRANGEMENTS WITH [facility] AND ONCE SALES REPRESENTATIVE MEATS RELEASES THE BODY, THEN WE CAN CALL [facility] TO BANK SECRECY ACT OFFICER BODY.
[2019-03-29] MEDS ORDERED: VANCOMYCIN 500 MG VIAL RC SCH (12:00)
[2019-03-29] MEDS ORDERED: VANCOMYCIN 1,000 MG VIAL PO SCH ×2 (12:00)
--- NOTE | 2019-03-29 12:57 | NUR ---
PATIENT'S REQUESTS TO HAVE A CRANE MANAGER FROM , CALLED AND LEFT A MESSAGE. WILL FOLLOW UP IN AN HOUR
--- NOTE | 2019-03-29 13:57 | NUR ---
Water Filter Cleaner Assessment/Discharge Plan Name: Mariana Cortes Home Relationship: Pre-Admission Living Arrangements: Lives with Other Other: Mariana Cortes Prior ADL Independent Healthcare Decision Maker: Patient Tentative Discharge Plan Summary: Patient is a 88 year old male with PMHx of Parkinsons, COPD, and Pagetz disease. Prior to hospital admission patient was living at home with his Mariana Cortes. He was independent with ADLs. Patient during hospitalization at [facility]. Mariana stated this is the first in their family. She was tearful. I provided her with counseling. She stated patient already has arrangements at [facility] ([place], [place]) , patient's nurse Iveth made aware. Mariana thanked me for my assistance. I provided her with my contact information. Water Filter Cleaner and/or [facility] will follow up as needed. Signature: ELIZABETH Eddy Date: Mar 29, 2019
--- NOTE | 2019-03-29 14:22 | NUR ---
SPOKE WITH GRISEL MURRAY FOOD TECHNOLOGIST, STATES THAT PATIENT IS NOT A FOOD TECHNOLOGIST'S CASE AND THAT THE BODY CAN BE RELEASED. Addendum: 03/29/19 at 1424 by Iveth Ro RN CASE NUMBER IS [id number]
--- NOTE | 2019-03-29 15:03 | NUR ---
SIENE MAKER FROM IS HERE WITH FAMILY AT BEDSIDE.
--- NOTE | 2019-03-29 15:08 | NUR ---
SPOKE WITH ADEN CURRAN PSYCHOLOGY PROFESSOR, STATES THAT SHE WILL FAX A FORM FOR PATIENT'S TO SIGN AND ONCE THEY RECEIVE THE FORM THEY WILL CALL AND GIVE US A TIME FOR WHEN THE BODY WILL GET PICKED UP.
--- NOTE | 2019-03-29 15:26 | NUR ---
PATIENT CLEANED, CENTRAL LINE REMOVED, ESPINAL CATHETER REMOVED, NGT REMOVED, ETT REMOVED, PATIENT PLACED IN BODY BAG FOR YARDER BOSS.
--- NOTE | 2019-03-29 16:45 | NUR ---
PATIENT'S AND FAMILY IS HERE, SIGNED FORM FOR [facility]. FAXED FORM, WAITING FOR CALL FOR ADMINISTRATIVE ASSISTANT OFFICE MANAGER OF PATIENT'S BODY.
--- NOTE | 2019-03-29 17:43 | NUR ---
[employer] REPRESENTATIVES ARE HERE TO INTERIOR PAINTER BODY, PATIENT'S FAMILY IS AWARE.
[2019-03-31] MEDS ORDERED: ALBUMIN HUMAN 25% 100 ML IV ONE (13:00)
== END 2019-03-29 17:50 | disposition expired | DRG 871 ==
LOC: MED 18:46 → MTU 22:30 → MIC 03-29 01:40
PROVIDERS: ADMIT General Practice; ATTEND General Practice
PROC: 02H633Z Insertion of Infusion Device into Right Atrium, Percutaneous Approach (ICD-10-PCS; principal; 2019-03-29)
PROC: B548ZZA Ultrasonography of Superior Vena Cava, Guidance (ICD-10-PCS; 2019-03-29)
PROC: 5A1935Z Respiratory Ventilation, Less than 24 Consecutive Hours (ICD-10-PCS; 2019-03-29)
PROC: 0BH17EZ Insertion of Endotracheal Airway into Trachea, Via Natural or Artificial Opening (ICD-10-PCS; 2019-03-29)
DX: A41.9 Sepsis, unspecified organism (principal); E43 Unspecified severe protein-calorie malnutrition; N17.0 Acute kidney failure with tubular necrosis; R65.21 Severe sepsis with septic shock; A04.72 Enterocolitis due to Clostridium difficile, not specified as recurrent; E87.2 Acidosis; G93.40 Encephalopathy, unspecified; Z68.1 Body mass index [BMI] 19.9 or less, adult; R65.20 Severe sepsis without septic shock; G20 Parkinson's disease; J44.9 Chronic obstructive pulmonary disease, unspecified; H40.9 Unspecified glaucoma; E87.6 Hypokalemia; R73.03 Prediabetes; E83.42 Hypomagnesemia; E83.39 Other disorders of phosphorus metabolism; I46.9 Cardiac arrest, cause unspecified; Z87.891 Personal history of nicotine dependence; Z98.42 Cataract extraction status, left eye; Z98.41 Cataract extraction status, right eye
CPT/HCPCS: 31500; 36415; 36600; 71045; 74018; 76770; 80048; 80053; 81001; 82272; 82803; 82948; 83036; 83605; 83690; 83735; 83880; 84100; 84134; 84443; 84484; 85025; 85610; 87040; 87070; 87081; 87086; 89055; 93005; 94002; 94640; 96365; 99291; J0153; J0696; J1642; J2001; J2370; J2405; J2543; J2704; J3370; J3480; J3490; J7030; J7060; J7620; Q0092